=== PATIENT | female | born 1985 | race Caucasian/White ===

== ENCOUNTER 2017-04-27 11:21 | Emergency (ER) | END 2017-04-27 12:47 | disposition home or self-care (01) ==

== ENCOUNTER 2018-12-27 06:54 | Inpatient (IN) | payer OTHER ==
[~2018-12-27] VITALS: Ht 157.5 cm; Wt 76.0 kg
[~2018-12-27 06:54] MED LIST: CEPH-443 PO; FER325 PO; IBUP-1542 PO; PNV1TABL43 PO; SULF1TAB31 PO
[2018-12-27 07:20] VITALS: Ht 157.5 cm; Wt 76.0 kg
[2018-12-27 07:21] VITALS: BP 115/74; PULSE 64; RESP 19
[2018-12-27] MEDS ORDERED: CARBOPROST 250 MCG INJ IM PRN (09:30)
[2018-12-27] MEDS ORDERED: METHYLERGONOVINE 0.2 MG INJ IM PRN (09:30)
[2018-12-27] MEDS ORDERED: OXYTOCIN 30 UNITS/LR 500 ML IV PRN (09:30)
[2018-12-27] MEDS ORDERED: OXYTOCIN 30 UNITS/LR 500 ML IV SCH ×2 (09:30)
[2018-12-27] MEDS ORDERED: BUTORPHANOL 2 MG INJ IV PRN (09:30)
[2018-12-27] MEDS ORDERED: LIDOCAINE 1% (MPF) 30 ML INJ INJ PRN (09:30)
[2018-12-27] MEDS ORDERED: MISOPROSTOL 200 MCG TAB PR PRN (09:30)
[2018-12-27] MEDS ORDERED: AMPICILLIN 2 GM/NS (PMX) 100 ML IV ONE (09:30)
[2018-12-27] MEDS: LACTATED RINGER'S 1,000 ML IV SCH ×3 (09:33→19:38)
[2018-12-27] MEDS: MISOPROSTOL 50 MCG CAPSULE PO SCH ×2 (09:40→14:38)
[2018-12-27] MEDS ORDERED: AMPICILLIN 1 GM/NS (PMX) 50 ML IV SCH (12:30)
[2018-12-27] MEDS ORDERED: FENTAnyl 2MCG/ML-ROPIV 0.2% 100 ML ONE (18:51)
[2018-12-27] MEDS ORDERED: ONDANSETRON 4 MG INJ IV PRN (19:00)
[2018-12-27] MEDS ORDERED: DIPHENHYDRAMINE 50 MG INJ IV PRN (19:00)
[2018-12-27] MEDS ORDERED: NALOXONE (0.4 MG/ML) INJ IV PRN (19:00)
[2018-12-27] MEDS ORDERED: FENTAnyl 2MCG/ML-ROPIV 0.2% 100 ML BAG EPI SCH (19:00)
[2018-12-27] MEDS ORDERED: MINERAL OIL LIGHT 10 ML VIAL TOP PRN (22:00)
[2018-12-28] MEDS: OXYTOCIN 30 UNITS/LR 500 ML IV SCH ×2 (04:08→08:07)
[2018-12-28] MEDS: LACTATED RINGER'S 1,000 ML IV* SCH ×3 (04:08→20:08)
[2018-12-28] MEDS ORDERED: MAGNESIUM HYDROXIDE 30ML CUP PO PRN (04:30)
[2018-12-28] MEDS ORDERED: OXYTOCIN 30 UNITS/LR 500 ML IV PRN (04:30)
[2018-12-28] MEDS ORDERED: WITCH HAZEL/GLYCERIN PAD PR PRN (04:30)
[2018-12-28] MEDS ORDERED: ACETAMINOPHEN 325 MG TAB PO PRN ×2 (04:30)
[2018-12-28] MEDS ORDERED: DIBUCAINE 1% 30 GM OINT TOP PRN (04:30)
[2018-12-28] MEDS ORDERED: LANOLIN HPA 1 PKT TOP PRN (04:30)
[2018-12-28] MEDS ORDERED: MISOPROSTOL 200 MCG TAB PR PRN (04:30)
[2018-12-28] MEDS ORDERED: METHYLERGONOVINE 0.2 MG INJ IM PRN (04:30)
[2018-12-28] MEDS ORDERED: ONDANSETRON 4 MG INJ IV PRN (04:30)
[2018-12-28] MEDS ORDERED: BENZOCAINE 20% 56 ML SPRAY TOP PRN (04:30)
[2018-12-28] MEDS ORDERED: SENNA/DOCUSATE NA (8.6MG/50MG) TAB PO PRN (04:30)
[2018-12-28] MEDS ORDERED: CARBOPROST 250 MCG INJ IM PRN (04:30)
[2018-12-28 05:10] VITALS: BP 124/80; PULSE 66; RESP 20
[2018-12-28 07:45] VITALS: BP 120/56; PULSE 63; RESP 18
[2018-12-28] MEDS: IBUPROFEN 600 MG TAB PO PRN ×3 (11:29→22:26)
[2018-12-28 16:00] VITALS: BP 103/68; PULSE 75; RESP 19
[2018-12-28 20:00] VITALS: BP 129/84; PULSE 77; RESP 18
[2018-12-29] VITALS: BP 106/55; PULSE 77; RESP 18
[2018-12-29 04:00] VITALS: BP 112/72; PULSE 73; RESP 17
[2018-12-29] MEDS: LACTATED RINGER'S 1,000 ML IV* SCH ×3 (04:08→20:08)
[2018-12-29 07:45] VITALS: BP 112/63; PULSE 74; RESP 18
[2018-12-29] MEDS: IBUPROFEN 600 MG TAB PO PRN ×2 (11:41→23:17)
[2018-12-29 16:00] VITALS: BP 119/78; PULSE 82; RESP 19
[2018-12-29 20:10] VITALS: BP 116/71; PULSE 85; RESP 18
[2018-12-30 04:27] VITALS: BP 125/66; PULSE 81; RESP 16
[2018-12-30 09:00] VITALS: BP 101/60; PULSE 76; RESP 16
[2018-12-30] MEDS: IBUPROFEN 600 MG TAB PO PRN (12:44)
== END 2018-12-30 14:15 | disposition home or self-care (01) | DRG 807 ==
LOC: OBT 06:54 → L-D 06:55 → OBT 08:30 → PP1 12-28 05:10
PROVIDERS: ADMIT Obstetrics & Gynecology; ATTEND Obstetrics & Gynecology
PROC: 10E0XZZ Delivery of Products of Conception, External Approach (ICD-10-PCS; principal; 2018-12-28)
PROC: 3E033VJ Introduction of Other Hormone into Peripheral Vein, Percutaneous Approach (ICD-10-PCS; 2018-12-28)
DX: O48.0 Post-term pregnancy (principal); Z37.0 Single live birth; Z3A.40 40 weeks gestation of pregnancy
CPT/HCPCS: 62322; 76815; 80307; 81001; 85025; 85610; 85730; 86592; 86850; 86900; 86901; 87340; 99464; G0463; J2210; J2590; J3010; J7120